=== PATIENT | male | born 1975 | race Caucasian/White ===

== ENCOUNTER → 2016-07-28 | Outpatient (CLI) | payer OTHER ==
[2016-07-28 16:14] LABS: SEMEN TIME OF COLLECTION 1433
[2016-07-28 16:15] LABS: DAYS OF ABSTINENCE 3; METHOD OF COLLECTION MASTURBATION; SEMEN COLOR YELLOW -GRAY (GRY/GRYWHTE); TYPE OF SPECIMEN CONTAINER STERILE CUP
[2016-07-28 16:53] LABS: SPERM VIABILITY STAIN NOT INDICATED % (>58%)
== END | disposition home or self-care (01) ==
LOC: C.LAB 15:06
PROVIDERS: ATTEND Family Medicine
DX: N46.9 Male infertility, unspecified (principal)